=== PATIENT | male | born 1990 | race Two or more races ===

== ENCOUNTER 2022-06-28 18:11 | Emergency (ER) | payer BC ==
[~2022-06-28] VITALS: Ht 188 cm; Wt 93.0 kg
[2022-06-28 18:16] VITALS: BP 146/72
== END 2022-06-29 02:14 | disposition left against medical advice (07) ==
LOC: ER 18:42
DX: Z53.21 Procedure and treatment not carried out due to patient leaving prior to being seen by health care provider (principal)